=== PATIENT | female | born 1995 | race Caucasian/White ===

== ENCOUNTER 2024-09-12 10:05 | Emergency (ER) | payer BC, OTHER ==
[~2024-09-12] VITALS: Ht 177.8 cm; Wt 108.9 kg
[~2024-09-12 10:05] MED LIST: CHOL500045 PO; LEVO50TA6 PO; TOPI25CA11 PO; TOPI50CA5 PO
[2024-09-12 10:18] VITALS: BP 153/104; PULSE 83; RESP 18; TEMP 98.3; O2SAT 95
[2024-09-12 10:24] LABS: BILIRUBIN,URINE NEGATIVE (NEGATIVE); LEUKOCYTE ESTERASE ,URINE 1+ (NEGATIVE); NITRATE,URINE NEGATIVE (NEGATIVE); PH,URINE 7.5 (4.5-8.0); UROBILINOGEN,URINE 0.2 E.U./dL (0.2)
[2024-09-12] MEDS ORDERED: REGLAN ONE (10:27)
[2024-09-12] MEDS ORDERED: ZOFRAN ODT ONE (10:27)
[2024-09-12] MEDS: ZOFRAN ODT SL STA (10:30)
[2024-09-12] MEDS: REGLAN PO STA (10:30)
[2024-09-12 11:03] LABS: APPEARANCE,URINE CLEAR; UA COLOR YELLOW
[2024-09-12] MEDS ORDERED: CIPR500S2 PO (11:06)
[2024-09-12 11:08] VITALS: BP 92/52; PULSE 81; RESP 18; TEMP 98.3; O2SAT 95
== END 2024-09-12 11:12 | disposition home or self-care (01) ==
LOC: ER 10:05
DX: R19.7 Diarrhea, unspecified (principal); N30.90 Cystitis, unspecified without hematuria; Z88.2 Allergy status to sulfonamides
CPT/HCPCS: 99283; 87086; 81001; J8597

== ENCOUNTER → 2025-02-07 | Outpatient (CLI) | payer BC ==
[~2025-02-07] MED LIST changes: +CIPR500S2 PO
== END | disposition home or self-care (01) ==
LOC: RAD 16:00
PROVIDERS: ATTEND Orthopaedic Surgery
DX: S82.62XD Displaced fracture of lateral malleolus of left fibula, subsequent encounter for closed fracture with routine healing (principal); S82.52XD Displaced fracture of medial malleolus of left tibia, subsequent encounter for closed fracture with routine healing; X58.XXXD Exposure to other specified factors, subsequent encounter
CPT/HCPCS: 73610-LT

== ENCOUNTER 2025-02-26 09:25 | Emergency (ER) | payer BC ==
[~2025-02-26] VITALS: Ht 180.3 cm; Wt 108.9 kg
[2025-02-26 09:29] VITALS: BP 146/91; PULSE 102; RESP 18; TEMP 98.7; O2SAT 97
[2025-02-26 09:49] LABS: BASOPHIL % 0.3 % (0.1-1.2); EOSINOPHIL # 0.2 10^3/uL (0.0-0.2); EOSINOPHIL % 1.9 % (0.0-5.0); HEMATOCRIT(ML) 43.4 % (36.0-46.0); HEMOGLOBIN 14.3 g/dL (12.0-15.0); LYMPHOCYTES # 3.14 10^3/uL1 (1.0-4.8); LYMPHOCYTES % 32.7 % (24.0-44.0); MEAN CORP HGB 28.5 pg (26-34); MEAN CORP HGB CONCENTRATION 32.9 g/dL (33-36.5); MEAN CORP VOLUME 86.5 fL (78-100); MONOCYTES # 0.7 10^3/uL (0.3-0.8); NEUTROPHIL # 5.6 10^3/uL (1.8-7.7); NEUTROPHILS % 57.8 % (41.0-85.0); PLATELET COUNT 202 10^3/uL (150-400); RED BLOOD CELL 5.02 10^6/uL (4.00-5.20); RED CELL DISTRIBUTION WIDTH 13.5 % (11.5-14.5); WHITE BLOOD CELL 9.6 10^3/uL (4.5-11.0)
[2025-02-26 09:52] LABS: +ADD MANUAL DIFF(NO CHRG) NO
[2025-02-26 09:59] LABS: ANION GAP 16.5; CARBON DIOXIDE 23.9 mmol/L (20.0-32); POTASSIUM 4.4 mmol/L (3.6-5.2)
[2025-02-26 10:00] LABS: BUN/CREATININE RATIO 21.17 (10.0-20.0); CALCIUM 9.1 mg/dL (8.4-10.5); CREATININE SERUM 0.85 mg/dL (0.59-1.40); EST GFR, NON-AA 79.6 (>/=60)
[2025-02-26 10:27] VITALS: BP 135/93; PULSE 99; RESP 18; O2SAT 95
[2025-02-26] MEDS ORDERED: ATIVAN ONE (10:31)
[2025-02-26] MEDS: ATIVAN PO STA (10:35)
== END 2025-02-26 10:38 | disposition home or self-care (01) ==
LOC: ER 09:25
DX: R42 Dizziness and giddiness (principal); F41.9 Anxiety disorder, unspecified; G47.00 Insomnia, unspecified; G25.81 Restless legs syndrome; Z88.2 Allergy status to sulfonamides
CPT/HCPCS: 36415; 80048; 84703; 85025; 93005; 99284

== ENCOUNTER → 2025-02-28 | Outpatient (CLI) | payer BC | END | disposition home or self-care (01) | LOC: RAD 15:26 | PROVIDERS: ATTEND Orthopaedic Surgery | DX: S82.62XD Displaced fracture of lateral malleolus of left fibula, subsequent encounter for closed fracture with routine healing (principal); S82.52XD Displaced fracture of medial malleolus of left tibia, subsequent encounter for closed fracture with routine healing; X58.XXXD Exposure to other specified factors, subsequent encounter | CPT/HCPCS: 73610-LT ==